=== PATIENT | male | born 1990 | race Caucasian/White ===

== ENCOUNTER 2018-06-05 06:13 | Day surgery (SDC) | payer OTHER | END 2018-06-05 12:50 | disposition home or self-care (01) | LOC: CIR.AMB 06:13 | DX: N47.1 Phimosis (principal) ==

== ENCOUNTER 2022-05-12 14:12 | Outpatient (CLI) | payer OTHER | END 2022-05-12 14:15 | disposition home or self-care (01) | LOC: SONOGRAMA 14:12 | PROVIDERS: ATTEND Pathology Anatomic Pathology & Clinical Pathology | DX: E04.2 Nontoxic multinodular goiter (principal); E06.3 Autoimmune thyroiditis ==